=== PATIENT | female | born 1990 | race African-American/Black ===

== ENCOUNTER 2017-05-11 13:16 | Inpatient (IN) | payer OTHER ==
[~2017-05-11] VITALS: Ht 162.6 cm; Wt 52.6 kg
[2017-05-11] VITALS (8 sets, daily range): BP systolic 121–146; BP diastolic 67–93
[2017-05-11] MEDS ORDERED: Famotidine 20 MG/ 2ML VIAL IVP ONE (13:45)
[2017-05-11 13:56] LABS: BASOPHILS % (AUTO) 1.1 % (0.0-2.0); EOSINOPHILS % (AUTO) 0.2 % (0.0-3.0); LYMPHOCYTES % (AUTO) 15.6 % (20.0-45.0); MEAN CORPUSCULAR HEMOGLOBIN 29.3 PG (27.0-31.0); MEAN CORPUSCULAR HGB CONC 31.3 G/DL (32.0-36.0); MEAN CORPUSCULAR VOLUME 94 FL (80-99); MEAN PLATELET VOLUME 8.8 FL (6.5-10.1); MONOCYTES % (AUTO) 5.1 % (1.0-10.0); NEUTROPHILS % (AUTO) 78.1 % (45.0-75.0); PLATELET COUNT 204 K/UL (150-450); RED BLOOD COUNT 4.95 M/UL (4.20-5.40); RED CELL DISTRIBUTION WIDTH 11.3 % (11.6-14.8); WHITE BLOOD COUNT 8.1 K/UL (4.8-10.8)
[2017-05-11 14:06] LABS: APPEARANCE,URINE CLOUDY; KETONES,URINE 4+ (NEGATIVE); LEUKOCYTE ESTERASE ,URINE 2+ (NEGATIVE); NITRITE,URINE NEGATIVE (NEGATIVE); PH,URINE 9 (4.5-8.0); PROTEIN,URINE 2+ (NEGATIVE); UROBILINOGEN,URINE 1 MG/DL (0.0-1.0)
[2017-05-11 14:16] LABS: BACTERIA,URINE MODERATE /HPF; ICTOTEST NEGATIVE; SQUAMOUS EPITHELIAL CELL,UR MANY /LPF (NONE/OCC)
[2017-05-11 14:18] LABS: ALANINE AMINOTRANSFERASE 15 U/L (3-33); ALBUMIN/GLOBULIN RATIO 1.1 (1.0-2.7); ANION GAP 21 (5-15); ASPARTATE AMINO TRANSFERASE 23 U/L (5-40); CALCIUM 10.8 mg/dL (8.6-10.2); CARBON DIOXIDE 21 mEQ/L (20-30); CHLORIDE 98 mEQ/L (98-107); CREATININE 0.6 mg/dL (0.5-0.9); GLOMERULAR FILTRATION RATE > 60 mL/min (>60); HEMOLYSIS 32; LIPASE 17 U/L (< 60); POTASSIUM 4.2 mEQ/L (3.4-4.9); SODIUM 140 mEQ/L (135-145); TOTAL PROTEIN 9.3 g/dL (6.6-8.7)
[2017-05-11] MEDS ORDERED: NKM (14:35)
[2017-05-11] MEDS ORDERED: cefTRIAXone 1 GM in NS 55 ML IVPB ONE (14:45)
--- NOTE | 2017-05-11 15:04 | Emergency Room Report ---
History of Present Illness General Chief Complaint: Flu Like Symptoms Source: Patient Present Illness HPI 27-year-old female presents ED for evaluation of abdominal pain with vomiting. Started this morning. Pain is sharp, epigastric, 10 out of 10, nonradiating. Notes chills and vomiting. Patient is diaphoretic upon arrival. Denies chest pain shortness of breath. Denies sick contacts or recent travel. No other aggravating or relieving factors. Denies any other systems Allergies: Coded Allergies: No Known Allergies (Unverified , 05/11/17) Patient History Past Medical History: none Past Surgical History: none Pertinent Family History: none Social History: Denies: alcohol use, drug use, smoking Last Menstrual Period: 05/04/2017 Now: No : 3 Para: 1 Immunizations: UTD Reviewed Nursing Documentation: PMH: Agreed, PSxH: Agreed Nursing Documentation-PMH Past Medical History: No Stated History Review of Systems All Other Systems: negative except mentioned in HPI Physical Exam Vital Signs Date Time Temp Pulse Resp B/P Pulse Ox O2 Delivery O2 Flow Rate FiO2 05/11/17 13:08 97.9 82 16 148/98 99 Room Air Sp02 EP Interpretation: reviewed, normal General Appearance: alert, GCS 15, non-toxic, mild distress Head: normocephalic, atraumatic Eyes: bilateral eye PERRL, bilateral eye normal inspection ENT: hearing grossly normal, normal pharynx, no angioedema, normal voice Neck: full range of motion, supple/symm/no masses Respiratory: chest non-tender, lungs clear, normal breath sounds, speaking full sentences Cardiovascular #1: regular rate, rhythm, no edema Cardiovascular #2: 2+ carotid (R), 2+ carotid (L), 2+ radial (R), 2+ radial (L) , 2+ dorsalis pedis (R), 2+ dorsalis pedis (L) Gastrointestinal: normal bowel sounds, soft, non-distended, no guarding, no rebound, tenderness - epigastric Rectal: deferred Genitourinary: normal inspection, no CVA tenderness Musculoskeletal: back normal, gait/station normal, normal range of motion, non- tender Neurologic: alert, oriented x3, responsive, motor strength/tone normal, sensory intact, speech normal Psychiatric: judgement/insight normal, memory normal, mood/affect normal, no suicidal/homicidal ideation Reflexes: 3+ bicep (R), 3+ bicep (L), 3+ tricep (R), 3+ tricep (L), 3+ knee (R) , 3+ knee (L) Skin: normal color, no rash, warm/dry, well hydrated Lymphatic: no adenopathy Medical Decision Making Diagnostic Impression: Primary Impression: UTI (urinary tract infection) Qualified Codes: N39.0 - Urinary tract infection, site not specified Additional Impressions: Gastritis Qualified Codes: 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 monitoring specialist. After initial history and physical I ordered labs, IV fluids, UA, Zofran, Pepcid and CT scan Labs - no leukocytosis, Hb/Hct stable. electrolytes ok. UA + bacteria Patient given Rocephin in ED. Given IV fluids. Patient continues to have pain and vomiting. Unable to tolerate by mouth U. tox shows positive opiates and THC CT abdomen and pelvis -no acute process, fibroids Case discussed with Dr. Joiner and he agreed to accept the patient to his service for further care and support I feel this is a highly complex case requiring extensive working including EKG/ Rhythm strip, Xray/CT/US, Blood/urine lab work, repeat exams while in ED, and administration of strong opiates/narcotics for pain control, admission to hospital or close patient follow up. Diagnosis - UTI, gastritis, cyclical vomiting Patient admitted to floor in serious condition Labs Test 05/11/17 13:37 05/11/17 13:45 White Blood Count 8.1 K/UL (4.8-10.8) Red Blood Count 4.95 M/UL (4.20-5.40) Hemoglobin 14.5 G/DL (12.0-16.0) Hematocrit 46.3 % (37.0-47.0) Mean Corpuscular Volume 94 FL (80-99) Mean Corpuscular Hemoglobin 29.3 PG (27.0-31.0) Mean Corpuscular Hemoglobin Concent 31.3 G/DL (32.0-36.0) Red Cell Distribution Width 11.3 % (11.6-14.8) Platelet Count 204 K/UL (150-450) Mean Platelet Volume 8.8 FL (6.5-10.1) Neutrophils (%) (Auto) 78.1 % (45.0-75.0) Lymphocytes (%) (Auto) 15.6 % (20.0-45.0) Monocytes (%) (Auto) 5.1 % (1.0-10.0) Eosinophils (%) (Auto) 0.2 % (0.0-3.0) Basophils (%) (Auto) 1.1 % (0.0-2.0) Sodium Level 140 mEQ/L (135-145) Potassium Level 4.2 mEQ/L (3.4-4.9) Chloride Level 98 mEQ/L (98-107) Carbon Dioxide Level 21 mEQ/L (20-30) Anion Gap 21 (5-15) Blood Urea Nitrogen 9 mg/dL (7-23) Creatinine 0.6 mg/dL (0.5-0.9) Estimat Glomerular Filtration Rate > 60 mL/min (>60) Glucose Level 99 mg/dL (74-106) Calcium Level 10.8 mg/dL (8.6-10.2) Total Bilirubin 0.4 mg/dL (0.0-1.2) Aspartate Amino Transf (AST/SGOT) 23 U/L (5-40) Alanine Aminotransferase (ALT/SGPT) 15 U/L (3-33) Alkaline Phosphatase 91 U/L (35-104) Total Protein 9.3 g/dL (6.6-8.7) Albumin 4.9 g/dL (3.5-5.2) Globulin 4.4 g/dL Albumin/Globulin Ratio 1.1 (1.0-2.7) Lipase 17 U/L (< 60) Urine Color Sherly Urine Appearance Cloudy Urine pH 9 (4.5-8.0) Urine Specific [place] 1.015 (1.005-1.035) Urine Protein 2+ (NEGATIVE) Urine Glucose (UA) Negative (NEGATIVE) Urine Ketones 4+ (NEGATIVE) Urine Occult Blood Negative (NEGATIVE) Urine Nitrite Negative (NEGATIVE) Urine Bilirubin Negative (NEGATIVE) Urine Ictotest Negative Urine Urobilinogen 1 MG/DL (0.0-1.0) Urine Leukocyte Esterase 2+ (NEGATIVE) Urine RBC 2-4 /HPF (0 - 2) Urine WBC 10-15 /HPF (0 - 2) Urine Squamous Epithelial Cells Many /LPF (NONE/OCC) Urine Bacteria Moderate /HPF (NONE) Urine HCG, Qualitative Negative Urine Opiates Screen Positive (NEGATIVE) Urine Barbiturates Screen Negative (NEGATIVE) Phencyclidine (PCP) Screen Negative (NEGATIVE) Urine Amphetamines Screen Negative (NEGATIVE) Urine Benzodiazepines Screen Negative (NEGATIVE) Urine Cocaine Screen Negative (NEGATIVE) Urine Marijuana (THC) Screen Positive (NEGATIVE) CT/MRI/US Diagnostic Results CT/MRI/US Diagnostic Results : Imaging Test Ordered: CT A/P Impression no acute process. fibroids noted. Last Vital Signs Date Time Temp Pulse Resp B/P Pulse Ox O2 Delivery O2 Flow Rate FiO2 05/11/17 13:50 98.5 61 14 135/78 100 Room Air Status: improved Disposition: ADMITTED INPATIENT Condition: Serious CAM LANG M.D. May 11, 2017 15:04
[2017-05-11] MEDS: LORazepam Inj 2mg/ml 1ml IV ONE ×2 (17:00→17:29)
[2017-05-11] MEDS ORDERED: Morphine Sulfate 4mg/ml Inj IVP ONE ×2 (17:30→19:15)
[2017-05-11] MEDS ORDERED: Norco 5mg/325mg tab ORAL PRN (22:45)
[2017-05-11] MEDS ORDERED: Zolpidem 5mg tab ORAL PRN (22:45)
[2017-05-11] MEDS: Norco 5mg/325mg tab ORAL PRN (23:43)
[2017-05-12] VITALS: BP 135/74
[2017-05-12] MEDS ORDERED: Cefepime 1gm vial ONE (02:33)
[2017-05-12] MEDS: Cefepime HCl 1 GM in D5W 55 ML IVPB SCH ×2 (02:47→15:23)
[2017-05-12] MEDS: Norco 5mg/325mg tab ORAL PRN ×2 (03:54→18:07)
[2017-05-12 04:00] VITALS: BP 133/80
[2017-05-12 07:33] LABS: MEAN CORPUSCULAR HEMOGLOBIN 30.6 PG (27.0-31.0); MEAN CORPUSCULAR VOLUME 93 FL (80-99); MEAN PLATELET VOLUME 10.3 FL (6.5-10.1); PLATELET COUNT 170 K/UL (150-450); RED BLOOD COUNT 3.98 M/UL (4.20-5.40); RED CELL DISTRIBUTION WIDTH 10.7 % (11.6-14.8); WHITE BLOOD COUNT 9.3 K/UL (4.8-10.8)
[2017-05-12 07:53] LABS: ALANINE AMINOTRANSFERASE 24 U/L (3-33); ALBUMIN/GLOBULIN RATIO 1.3 (1.0-2.7); ANION GAP 15 (5-15); ASPARTATE AMINO TRANSFERASE 25 U/L (5-40); CALCIUM 9.7 mg/dL (8.6-10.2); CARBON DIOXIDE 21 mEQ/L (20-30); CHLORIDE 102 mEQ/L (98-107); CREATININE 0.7 mg/dL (0.5-0.9); GLOMERULAR FILTRATION RATE > 60 mL/min (>60); HEMOLYSIS 3; POTASSIUM 3.8 mEQ/L (3.4-4.9); SODIUM 138 mEQ/L (135-145); TOTAL PROTEIN 7.8 g/dL (6.6-8.7)
[2017-05-12 08:00] VITALS: BP 130/61
--- NOTE | 2017-05-12 09:25 | Diagnostic Imaging Report ---
Indications: Abdominal pain Technique: Continuous helical CT imaging of the abdomen and pelvis was performed with automatic exposure control following administration of nonionic IV contrast only, on a Siemens sensation [address] scanner. Axial, coronal, sagittal images were reconstructed at 5 mm slice thickness. No oral contrast was administered per requesting physician's order, despite no contraindications listed in either submitted clinical data or tech note.. CTDI volume(s): 15, 19 mGy Total DLP: 945 mGy-cm Findings: Comparison: None Lack of oral contrast limits evaluation of gastrointestinal tract, nondilated throughout. Appendix not identified. Small amount pelvic free fluid. No obvious mural thickening, adjacent stranding, extraluminal gas or loculated fluid collections identified. Calcified mass or masses in the left hemipelvis, appearing to emanate from the uterus, collectively 7 cm maximal diameter. Liver, gallbladder, pancreas, spleen, adrenal glands, kidneys, ureters, urinary bladder, uterus, bilateral adnexal regions, vascular structures, retroperitoneum, mesentery, remainder visualized abdominopelvic anatomy unremarkable. Lung bases and adjacent pleural surfaces clear. No focal skeletal abnormalities are identified. IMPRESSION: Nonvisualization of appendix. While there is no overt evidence of acute appendicitis, early/subtle acute appendicitis may be missed. Examination therefore nondiagnostic for this diagnosis. Small amount pelvic free fluid, nonspecific, may be physiologic/represent recent ovarian cyst rupture No other evidence of acute abdominopelvic disease, with limitation as described. Subtle but potentially significant abnormalities the gastrointestinal tract may be missed. Repeat CT scan with full oral and IV contrast preparation recommended for more complete evaluation, as clinically indicated Hemipelvic mass(es) most compatible with calcified uterine fibroid(s) This correlates with Dr. Moses's preliminary report.
[2017-05-12 09:34] LABS: BAND NEUTROPHILS % (MANUAL) 1 % (0-8); BASOPHILS % (MANUAL) 0 % (0-2); EOSINOPHILS % (MANUAL) 0 % (0-3); LYMPHOCYTES % (MANUAL) 4 % (20-45); NEUTROPHILS % (MANUAL) 91 % (45-75); PLATELET ESTIMATE ADEQUATE; PLATELET MORPHOLOGY NORMAL; TOTAL CELLS COUNTED 100
--- NOTE | 2017-05-12 09:43 | History & Physical ---
History and Physical History & Physicial HPI 27-year-old female presents for persistent vomiting and abdominal pain with vomiting. Notes chills and vomiting. Denies chest pain shortness of breath. Denies sick contacts or recent travel. No other aggravating or relieving factors. Patient admitted for IV hydration and antiemetics Allergies: No Known Allergies (Unverified , 05/11/17) Past Medical History: none Past Surgical History: none Pertinent Family History: none Social History: Denies: alcohol use, drug use, smoking Last Menstrual Period: 05/04/2017 physical exam WDWN NAD clear breath sounds bilaterally without rhonchi or wheeze [id number] without MRG NABS nontender no HSM no CCE nonfocal Labs Test 05/11/17 13:37 05/11/17 13:45 05/12/17 05:45 White Blood Count 8.1 K/UL (4.8-10.8) 9.3 K/UL (4.8-10.8) Red Blood Count 4.95 M/UL (4.20-5.40) 3.98 M/UL (4.20-5.40) Hemoglobin 14.5 G/DL (12.0-16.0) 12.2 G/DL (12.0-16.0) Hematocrit 46.3 % (37.0-47.0) 36.9 % (37.0-47.0) Mean Corpuscular Volume 94 FL (80-99) 93 FL (80-99) Mean Corpuscular Hemoglobin 29.3 PG (27.0-31.0) 30.6 PG (27.0-31.0) Mean Corpuscular Hemoglobin Concent 31.3 G/DL (32.0-36.0) 33.0 G/DL (32.0-36.0) Red Cell Distribution Width 11.3 % (11.6-14.8) 10.7 % (11.6-14.8) Platelet Count 204 K/UL (150-450) 170 K/UL (150-450) Mean Platelet Volume 8.8 FL (6.5-10.1) 10.3 FL (6.5-10.1) Neutrophils (%) (Auto) 78.1 % (45.0-75.0) % (45.0-75.0) Lymphocytes (%) (Auto) 15.6 % (20.0-45.0) % (20.0-45.0) Monocytes (%) (Auto) 5.1 % (1.0-10.0) % (1.0-10.0) Eosinophils (%) (Auto) 0.2 % (0.0-3.0) % (0.0-3.0) Basophils (%) (Auto) 1.1 % (0.0-2.0) % (0.0-2.0) Sodium Level 140 mEQ/L (135-145) 138 mEQ/L (135-145) Potassium Level 4.2 mEQ/L (3.4-4.9) 3.8 mEQ/L (3.4-4.9) Chloride Level 98 mEQ/L (98-107) 102 mEQ/L (98-107) Carbon Dioxide Level 21 mEQ/L (20-30) 21 mEQ/L (20-30) Anion Gap 21 (5-15) 15 (5-15) Blood Urea Nitrogen 9 mg/dL (7-23) 15 mg/dL (7-23) Creatinine 0.6 mg/dL (0.5-0.9) 0.7 mg/dL (0.5-0.9) Estimat Glomerular Filtration Rate > 60 mL/min (>60) > 60 mL/min (>60) Glucose Level 99 mg/dL (74-106) 108 mg/dL (74-106) Calcium Level 10.8 mg/dL (8.6-10.2) 9.7 mg/dL (8.6-10.2) Total Bilirubin 0.4 mg/dL (0.0-1.2) 0.3 mg/dL (0.0-1.2) Aspartate Amino Transf (AST/SGOT) 23 U/L (5-40) 25 U/L (5-40) Alanine Aminotransferase (ALT/SGPT) 15 U/L (3-33) 24 U/L (3-33) Alkaline Phosphatase 91 U/L (35-104) 67 U/L (35-104) Total Protein 9.3 g/dL (6.6-8.7) 7.8 g/dL (6.6-8.7) Albumin 4.9 g/dL (3.5-5.2) 4.5 g/dL (3.5-5.2) Globulin 4.4 g/dL 3.3 g/dL Albumin/Globulin Ratio 1.1 (1.0-2.7) 1.3 (1.0-2.7) Lipase 17 U/L (< 60) Urine Color Sherly Urine Appearance Cloudy Urine pH 9 (4.5-8.0) Urine Specific [place] 1.015 (1.005-1.035) Urine Protein 2+ (NEGATIVE) Urine Glucose (UA) Negative (NEGATIVE) Urine Ketones 4+ (NEGATIVE) Urine Occult Blood Negative (NEGATIVE) Urine Nitrite Negative (NEGATIVE) Urine Bilirubin Negative (NEGATIVE) Urine Ictotest Negative Urine Urobilinogen 1 MG/DL (0.0-1.0) Urine Leukocyte Esterase 2+ (NEGATIVE) Urine RBC 2-4 /HPF (0 - 2) Urine WBC 10-15 /HPF (0 - 2) Urine Squamous Epithelial Cells Many /LPF (NONE/OCC) Urine Bacteria Moderate /HPF (NONE) Urine HCG, Qualitative Negative Urine Opiates Screen Positive (NEGATIVE) Urine Barbiturates Screen Negative (NEGATIVE) Phencyclidine (PCP) Screen Negative (NEGATIVE) Urine Amphetamines Screen Negative (NEGATIVE) Urine Benzodiazepines Screen Negative (NEGATIVE) Urine Cocaine Screen Negative (NEGATIVE) Urine Marijuana (THC) Screen Positive (NEGATIVE) Differential Total Cells Counted 100 Neutrophils % (Manual) 91 % (45-75) Lymphocytes % (Manual) 4 % (20-45) Monocytes % (Manual) 4 % (1-10) Eosinophils % (Manual) 0 % (0-3) Basophils % (Manual) 0 % (0-2) Band Neutrophils 1 % (0-8) Platelet Estimate Adequate Platelet Morphology Normal Red Blood Cell Morphology Normal IMPRESSION gastroenteritis vomiting stomach flu PLAN Iv hydration antiemetics clears advance diet and dc if tolerated WELLINGTON ADEN May 12, 2017 09:43
[2017-05-12] MEDS ORDERED: Tubing IV Secondary IV ONE (10:04)
[2017-05-12 16:00] VITALS: BP 104/62
[2017-05-12 20:00] VITALS: BP 124/67
[2017-05-13] VITALS: BP 119/62
[2017-05-13] MEDS: Cefepime HCl 1 GM in D5W 55 ML IVPB SCH ×2 (03:11→15:35)
[2017-05-13 04:00] VITALS: BP 119/77
[2017-05-13 08:00] VITALS: BP 137/74
--- NOTE | 2017-05-13 08:16 | General Progress Note ---
Assessment/Plan Assessment/Plan IMPRESSION gastroenteritis vomiting stomach flu PLAN Iv hydration antiemetics clears advance diet and dc if tolerated at present, will keep in acute care Subjective Allergies: Coded Allergies: No Known Allergies (Unverified , 05/11/17) Subjective still with nausea discharge held Objective Last 24 Hour Vital Signs Date Time Temp Pulse Resp B/P Pulse Ox O2 Delivery O2 Flow Rate FiO2 05/13/17 04:00 97.7 62 18 119/77 100 Room Air 05/13/17 00:00 97.4 60 18 119/62 99 05/12/17 20:00 97.7 58 18 124/67 98 Room Air 05/12/17 16:00 97.3 62 18 104/62 99 Room Air Intake and Output 05/12/17 05/13/17 19:00 07:00 Intake Total 1400 ml 600 ml Balance 1400 ml 600 ml Intake Oral 300 ml 300 ml IV Total 1100 ml 300 ml Height (Feet): 5 Height (Inches): 4.00 Weight (Pounds): 116 Objective WDWN NAD clear breath sounds bilaterally without rhonchi or wheeze [id number] without MRG NABS nontender no HSM no CCE nonfocal WELLINGTON ADEN May 13, 2017 08:16
[2017-05-13 12:00] VITALS: BP 143/85
[2017-05-13 16:00] VITALS: BP 129/74
[2017-05-13] MEDS: Metoclopramide 10mg/2ml Inj IVP SCH ×2 (17:22→23:04)
[2017-05-13] MEDS ORDERED: LORazepam Inj 2mg/ml 1ml IV PRN (17:30)
[2017-05-13] MEDS ORDERED: Morphine Sulfate 10mg/ml Inj IVP PRN (17:30)
[2017-05-13] MEDS ORDERED: Morphine Sulfate 4mg/ml Inj IVP PRN (17:30)
[2017-05-13] MEDS: Pantoprazole Inj IVP SCH (19:41)
[2017-05-13 20:00] VITALS: BP 148/71
[2017-05-13] MEDS: Morphine Sulfate 2mg/ml Inj IV PRN (22:27)
[2017-05-14] MEDS: Cefepime HCl 1 GM in D5W 55 ML IVPB SCH ×2 (02:05→14:20)
[2017-05-14] MEDS: Morphine Sulfate 2mg/ml Inj IV PRN ×3 (03:20→22:16)
[2017-05-14 04:00] VITALS: BP 137/89
[2017-05-14] MEDS: Metoclopramide 10mg/2ml Inj IVP SCH ×4 (04:48→23:06)
[2017-05-14 06:42] LABS: BASOPHILS % (AUTO) 0.7 % (0.0-2.0); LYMPHOCYTES % (AUTO) 16.3 % (20.0-45.0); MEAN CORPUSCULAR HEMOGLOBIN 30.5 PG (27.0-31.0); MEAN CORPUSCULAR HGB CONC 32.7 G/DL (32.0-36.0); MEAN CORPUSCULAR VOLUME 93 FL (80-99); MEAN PLATELET VOLUME 9.5 FL (6.5-10.1); MONOCYTES % (AUTO) 10.5 % (1.0-10.0); NEUTROPHILS % (AUTO) 72.5 % (45.0-75.0); PLATELET COUNT 156 K/UL (150-450); RED BLOOD COUNT 3.83 M/UL (4.20-5.40); RED CELL DISTRIBUTION WIDTH 10.8 % (11.6-14.8); WHITE BLOOD COUNT 7.4 K/UL (4.8-10.8)
[2017-05-14 07:23] LABS: ANION GAP 19 (5-15); CARBON DIOXIDE 21 mEQ/L (20-30); CHLORIDE 101 mEQ/L (98-107); CREATININE 0.6 mg/dL (0.5-0.9); GLOMERULAR FILTRATION RATE > 60 mL/min (>60); HEMOLYSIS 2; POTASSIUM 3.5 mEQ/L (3.4-4.9); SODIUM 141 mEQ/L (135-145)
[2017-05-14] MEDS: Pantoprazole Inj IVP SCH (07:53)
[2017-05-14 08:00] VITALS: BP 141/90
--- NOTE | 2017-05-14 08:05 | General Progress Note ---
Assessment/Plan Assessment/Plan IMPRESSION gastroenteritis vomiting stomach flu PLAN Iv hydration antiemetics clears advance diet and dc if tolerated at present, will keep in acute care GI evaluation Subjective Allergies: Coded Allergies: No Known Allergies (Unverified , 05/11/17) Subjective still with nausea and difficulty with po intake discharge on hold Objective Last 24 Hour Vital Signs Date Time Temp Pulse Resp B/P Pulse Ox O2 Delivery O2 Flow Rate FiO2 05/14/17 04:00 98.1 55 20 137/89 99 05/14/17 03:50 99.0 05/13/17 20:00 98.2 58 20 148/71 99 Room Air 05/13/17 16:00 99.0 49 19 129/74 99 Room Air 05/13/17 12:00 97.5 50 19 143/85 Room Air Intake and Output 05/13/17 05/14/17 19:00 07:00 Intake Total 1615 ml 400 ml Balance 1615 ml 400 ml Intake Oral 660 ml IV Total 955 ml 400 ml # Voids 2 2 Laboratory Tests 05/14/17 05:20: White Blood Count 7.4, Red Blood Count 3.83L, Hemoglobin 11.7L, Hematocrit 35.7L , Mean Corpuscular Volume 93, Mean Corpuscular Hemoglobin 30.5, Mean Corpuscular Hemoglobin Concent 32.7, Red Cell Distribution Width 10.8L, Platelet Count 156, Mean Platelet Volume 9.5, Neutrophils (%) (Auto) 72.5, Lymphocytes (%) (Auto) 16.3L, Monocytes (%) (Auto) 10.5H, Eosinophils (%) (Auto ) 0.0, Basophils (%) (Auto) 0.7, Sodium Level 141, Potassium Level 3.5, Chloride Level 101, Carbon Dioxide Level 21, Anion Gap 19H, Blood Urea Nitrogen 18, Creatinine 0.6, Estimat Glomerular Filtration Rate > 60, Glucose Level 77, Calcium Level 9.0 Height (Feet): 5 Height (Inches): 4.00 Weight (Pounds): 116 Objective WDWN NAD clear breath sounds bilaterally without rhonchi or wheeze [id number] without MRG NABS nontender no HSM no CCE nonfocal WELLINGTON ADEN May 14, 2017 08:05
--- NOTE | 2017-05-14 14:46 | GI Initial Consult Note ---
History of Present Illness General Date patient seen: May 14, 2017 Time patient seen: 14:37 Reason for Hospitalization: Flu Like Symptoms Referring physician: WELLINGTON ADEN Reason for Consultation: N/V Present Illness HPI 27-year-old female presents ED for evaluation of abdominal pain with vomiting. Started this morning. Pain is sharp, epigastric, 10 out of 10, nonradiating. Notes chills and vomiting. Patient is diaphoretic upon arrival. Denies chest pain shortness of breath. Denies sick contacts or recent travel. No other aggravating or relieving factors. Denies any other systems GI Consult. HPI as noted above. GI consulted for persistent vomiting. Pt seen on floor, awake A&Ox4 NAD with noted emesis in basin. Patient denies any medical history. Has hx of daily MJ use for a few years. First episode of emesis experienced by the patient. Denies ETOH or tobacco use. Denies diarrhea. Home Meds Reported Medications No Known Medications* (NKM - No Known Medications*) ., 0 ., 0 Refills 05/11/17 Med list reviewed/reconciled: Yes Allergies: Coded Allergies: No Known Allergies (Unverified , 05/11/17) Patient History History Provided By: Patient, Medical Record PMH Narrative Past Medical History: none Past Surgical History: none Pertinent Family History: none Social History: Denies: alcohol use, drug use, smoking Last Menstrual Period: 05/04/2017 Now: No : 3 Para: 1 Immunizations: UTD Reviewed Nursing Documentation: PMH: Agreed, PSxH: Agreed Nursing Documentation-PM Past Medical History: No Stated History Social History: Reports: drug use - MJ Review of Systems All Other Systems: negative except mentioned in HPI Physical Exam Vital Signs Date Time Temp Pulse Resp B/P Pulse Ox O2 Delivery O2 Flow Rate FiO2 05/11/17 13:08 97.9 82 16 148/98 99 Room Air Sp02 EP Interpretation: reviewed Labs Laboratory Tests Test 05/14/17 05:20 White Blood Count 7.4 K/UL (4.8-10.8) Red Blood Count 3.83 M/UL (4.20-5.40) L Hemoglobin 11.7 G/DL (12.0-16.0) L Hematocrit 35.7 % (37.0-47.0) L Mean Corpuscular Volume 93 FL (80-99) Mean Corpuscular Hemoglobin 30.5 PG (27.0-31.0) Mean Corpuscular Hemoglobin Concent 32.7 G/DL (32.0-36.0) Red Cell Distribution Width 10.8 % (11.6-14.8) L Platelet Count 156 K/UL (150-450) Mean Platelet Volume 9.5 FL (6.5-10.1) Neutrophils (%) (Auto) 72.5 % (45.0-75.0) Lymphocytes (%) (Auto) 16.3 % (20.0-45.0) L Monocytes (%) (Auto) 10.5 % (1.0-10.0) H Eosinophils (%) (Auto) 0.0 % (0.0-3.0) Basophils (%) (Auto) 0.7 % (0.0-2.0) Sodium Level 141 mEQ/L (135-145) Potassium Level 3.5 mEQ/L (3.4-4.9) Chloride Level 101 mEQ/L (98-107) Carbon Dioxide Level 21 mEQ/L (20-30) Anion Gap 19 (5-15) H Blood Urea Nitrogen 18 mg/dL (7-23) Creatinine 0.6 mg/dL (0.5-0.9) Estimat Glomerular Filtration Rate > 60 mL/min (>60) Glucose Level 77 mg/dL (74-106) Calcium Level 9.0 mg/dL (8.6-10.2) General Appearance: well appearing, no apparent distress, alert Head: normocephalic EENT: PERRL/EOMI, normal ENT inspection Neck: full range of motion, supple Respiratory: normal breath sounds, no respiratory distress Cardiovascular: normal rate Gastrointestinal: normal inspection, soft, tenderness - generalized Rectal: deferred Genitourinary: no CVA tenderness Musculoskeletal: normal inspection, back normal Neurologic: normal inspection, alert, oriented x3, responsive Psychiatric: normal inspection, judgement/insight normal, memory normal Skin: normal inspection, normal color, no rash, warm/dry Lymphatic: normal inspection, no adenopathy Current Medications Current Medications Medications (Trade) Dose Ordered Sig/Ania Route PRN Reason Start Time Stop Time Status Last Admin Dose Admin Acetaminophen (Tylenol) 650 mg Q4H PRN ORAL Mild Pain/Temp > 100.5 7/8/17 22:45 06/10/17 22:44 Al Hydroxide/Mg Hydroxide (Mylanta) 30 ml Q4H PRN ORAL INDIGESTION 05/11/17 22:45 06/10/17 22:44 05/13/17 11:05 Cefepime HCl/ Dextrose (Maxipime/D5W) 55 ml @ 110 mls/hr Q12H IVPB 05/12/17 03:00 05/19/17 02:59 05/14/17 14:20 Lorazepam (Ativan 2mg/ml 1ml) 1 mg Q3H PRN IV For Anxiety 05/13/17 17:30 05/20/17 17:29 Metoclopramide HCl (Reglan) 10 mg Q6H IVP 05/13/17 17:00 06/12/17 16:59 05/14/17 11:06 Morphine Sulfate (Morphine Sulfate) 2 mg Q3H PRN IV Mild Pain (Pain Scale 1-3) 05/13/17 17:30 05/20/17 17:29 05/14/17 03:20 Morphine Sulfate (Morphine Sulfate) 4 mg Q3H PRN IVP Moderate Pain (Pain Scale 4-6) 05/13/17 17:30 05/20/17 17:29 Morphine Sulfate (Morphine Sulfate) 6 mg Q3H PRN IVP Severe Pain (Pain Scale 7-10) 05/13/17 17:30 05/20/17 17:29 Ondansetron HCl (Zofran) 4 mg Q4H PRN IVP Nausea & Vomiting 05/13/17 12:00 06/12/17 11:59 05/14/17 07:52 Pantoprazole (Protonix) 40 mg DAILY IVP 05/13/17 19:00 06/12/17 18:59 05/14/17 07:53 Sodium Chloride 1,000 ml @ 100 mls/hr Q10H IV 05/11/17 22:45 06/10/17 22:44 05/14/17 11:06 Zolpidem Tartrate (Ambien) 5 mg HSPRN PRN ORAL Insomnia 05/11/17 22:45 06/10/17 22:44 GI: Plan Problems: (1) Dehydration (2) Vomiting (3) UTI (urinary tract infection) (4) Cyclical vomiting (5) Gastritis Plan supportive care CLD, adv as tolerated IV hydration + electrolyte correction zofran prn reglan ATC ppi pain mgmt abx fu labs Discussed with Dr. Hernández. Thank you for referring this patient, we will follow. Amalia Cox N.P. May 14, 2017 14:46
[2017-05-14 16:04] VITALS: BP 148/95
[2017-05-14 20:02] VITALS: BP 141/81
[2017-05-14 23:36] VITALS: BP 158/85
[2017-05-15] MEDS: Morphine Sulfate 2mg/ml Inj IV PRN (03:17)
[2017-05-15 04:11] VITALS: BP 161/97
[2017-05-15] MEDS: Metoclopramide 10mg/2ml Inj IVP SCH (04:28)
[2017-05-15 08:39] VITALS: BP 145/74
[2017-05-15] MEDS: Pantoprazole Inj IVP SCH (09:01)
--- NOTE | 2017-05-15 09:14 | General Progress Note ---
Assessment/Plan Assessment/Plan IMPRESSION gastroenteritis vomiting stomach flu PLAN dc today zofran prn hydration bland diet return to ER if symptoms recur follow up with PMD Subjective Allergies: Coded Allergies: No Known Allergies (Unverified , 05/11/17) Subjective much improved d/w nursing tolerating diet Objective Last 24 Hour Vital Signs Date Time Temp Pulse Resp B/P Pulse Ox O2 Delivery O2 Flow Rate FiO2 05/15/17 08:39 97.5 51 18 145/74 98 Room Air 05/15/17 04:11 97.5 62 20 161/97 97 Room Air 05/15/17 03:47 97.5 05/14/17 23:36 96.5 56 19 158/85 98 Room Air 05/14/17 20:02 97.0 62 18 141/81 98 Room Air 05/14/17 16:04 99.0 51 18 148/95 99 Room Air Intake and Output 05/14/17 05/15/17 19:00 07:00 Intake Total 1460 ml 900 ml Balance 1460 ml 900 ml Intake Oral 360 ml IV Total 1100 ml 900 ml # Voids 4 2 # Bowel Movements 2 Height (Feet): 5 Height (Inches): 4.00 Weight (Pounds): 116 Objective WDWN NAD clear breath sounds bilaterally without rhonchi or wheeze [id number] without MRG NABS nontender no HSM no CCE nonfocal WELLINGTON ADEN May 15, 2017 09:14
[2017-05-15] MEDS ORDERED: ZOFRAN ODT4 MG ORAL (09:15)
--- NOTE | 2017-05-15 13:05 | GI Progress Note ---
Assessment/Plan Problems: (1) Dehydration ICD Codes: E86.0 - Dehydration SNOMED: 01479439 (2) Vomiting ICD Codes: R11.10 - Vomiting, unspecified SNOMED: [id number] Status: stable Status Narrative Discussed with Dr. Hernández. Assessment/Plan okay for DC per GI standpoint supportive care IV hydration + electrolyte correction zofran prn reglan ATC ppi pain mgmt abx Subjective Subjective N/V resolved Objective Last 24 Hour Vital Signs Date Time Temp Pulse Resp B/P Pulse Ox O2 Delivery O2 Flow Rate FiO2 05/15/17 08:39 97.5 51 18 145/74 98 Room Air 05/15/17 04:11 97.5 62 20 161/97 97 Room Air 05/15/17 03:47 97.5 05/14/17 23:36 96.5 56 19 158/85 98 Room Air 05/14/17 20:02 97.0 62 18 141/81 98 Room Air 05/14/17 16:04 99.0 51 18 148/95 99 Room Air Intake and Output 05/14/17 05/15/17 19:00 07:00 Intake Total 1460 ml 900 ml Balance 1460 ml 900 ml Intake Oral 360 ml IV Total 1100 ml 900 ml # Voids 4 2 # Bowel Movements 2 Height (Feet): 5 Height (Inches): 4.00 Weight (Pounds): 116 General Appearance: no apparent distress, alert Cardiovascular: normal rate Respiratory/Chest: normal breath sounds, no respiratory distress Abdominal Exam: normal bowel sounds, non tender, soft Extremities: normal range of motion Amalia Cox N.P. May 15, 2017 13:05
--- NOTE | 2017-05-17 10:11 | Discharge Summary ---
Discharge Summary Hospital Course Date of Admission May 11, 2017 at 21:06 Date of Discharge May 15, 2017 at 11:20 Admitting Diagnosis UTI, vomiting HPI Liliana Nunez is a 27 year old female who was admitted on May 11, 2017 at 21:06 for Uti,Vomiting Hospital Course [id number] Discharge Discharge Disposition Patient was discharged to Home (01) Discharge Diagnoses: Lizzy Sanchez NP May 17, 2017 10:10
--- NOTE | 2017-05-18 03:30 | Discharge Summary 2 SIG ---
DATE OF ADMISSION: 05/11/2017 DATE OF DISCHARGE: 05/15/2017 CARDIOPULMONARY SPECIALIST: Vargas Hernández M.D. BRIEF HOSPITAL COURSE: The patient is a 27-year-old female, who presented due to persistent vomiting and abdominal pain with noted chills. Denies sick contacts or recent travel. Denied chest pain or shortness of breath. On evaluation at ED, laboratories showed no leukocytosis. Hemoglobin and hematocrit were stable. Urinalysis was positive with infection. She was started on IV Rocephin and was given IV hydration. She continued to have pain and vomiting and unable to take anything by mouth. Urine toxicology was positive for opiates and THC. CT of the abdomen and pelvis showed nonvisualization of the appendix with no overt evidence of acute appendicitis, small amount of free fluid may be physiologic from recent ovarian cyst rupture, no other evidence of acute abdominopelvic disease. She was given IV hydration. She was admitted to medical floor for gastroenteritis, vomiting, and stomach flu and was given IV hydration and antiemetics and was started on clear liquid diet. The GI was consulted. Reglan was added around the clock and was given proton pump inhibitors. She was given a bland diet and advised to return to the ER if symptoms recur. Advised to follow up with PMD. She was eventually discharged home. FINAL DIAGNOSES: 1. Acute gastroenteritis. 2. Vomiting and stomach flu. 3. Dehydration. Tesfaye Joiner M.D. I have been assigned to dictate discharge summary on this account and I was not involved in the patient's management. Lizzy Sanchez N.P. DR: SANJIV JOB#: [id number] CC:
== END 2017-05-15 11:20 | disposition home or self-care (01) | DRG 249 ==
LOC: EDBD 13:16 → EMR 15:02 → EDBEDREQ 17:59 → 4W 21:06
DX: E86.0 Dehydration (principal); K52.9 Noninfective gastroenteritis and colitis, unspecified; N39.0 Urinary tract infection, site not specified; K29.70 Gastritis, unspecified, without bleeding
CPT/HCPCS: 36415; 74177; 80048; 80053; 80300; 81003; 81025; 83690; 85007; 85025; 87081; 87086; 96360; 96361; 96365; J2405; J2765